=== PATIENT | male | born 1975 | race Caucasian/White ===

== ENCOUNTER 2018-09-28 15:22 | Emergency (ER) | payer OTHER ==
[~2018-09-28] VITALS: Ht 177.8 cm; Wt 71.7 kg
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
[2018-09-28 16:28] LABS: BASOPHILS % (AUTO) 0.3 % (0.0-2.0); EOSINOPHILS % (AUTO) 0.2 % (0.0-6.0); HEMATOCRIT 43 % (39-51); HEMOGLOBIN 14.9 g/dL (13.5-17.5); LYMPHOCYTES # (AUTO) 0.9 /CMM (0.8-4.8); LYMPHOCYTES % (AUTO) 8.9 % (20.0-44.0); MEAN CORPUSCULAR HGB CONC 35 g/dl (31.0-36.0); MEAN CORPUSCULAR VOLUME 92 fL (80-96); MONOCYTES # (AUTO) 0.5 /CMM (0.1-1.30); MONOCYTES % (AUTO) 5.1 % (2.0-12.0); NEUTROPHILS # (AUTO) 8.4 /CMM (1.8-8.9); NEUTROPHILS % (AUTO) 85.5 % (43.0-81.0); PLATELET COUNT (AUTO) 211 /CMM (150-450); RED BLOOD CELL COUNT(AUTO) 4.61 MIL/uL (4.5-6.0); WHITE BLOOD COUNT (AUTO) 9.8 K/uL (4.3-11.0)
[2018-09-28] MEDS ORDERED: ASPIRIN 81 MG TAB.CHEW PO ONE (16:30)
[2018-09-28] MEDS ORDERED: ASPIRIN 81 MG TAB.CHEW ONE (16:36)
[2018-09-28 16:38] LABS: ALCOHOL, BLOOD < 3 mg/dL (0-0)
[2018-09-28 16:43] LABS: CALCIUM, SERUM 8.7 mg/dL (8.5-10.1); CREATININE 1.1 mg/dL (0.6-1.3); MAGNESIUM 1.8 mg/dL (1.8-2.4)
[2018-09-28 16:46] LABS: POTASSIUM 2.7 mmol/L (3.5-5.1)
[2018-09-28 16:53] LABS: CREATINE KINASE, TOTAL 143 U/L (39-308)
--- NOTE | 2018-09-28 16:59 | NUR ---
CALLED [facility] [phone] [facility] NUMBER IS [phone] ACTIVE
[2018-09-28] MEDS ORDERED: POTASSIUM CHLORIDE 20 MEQ TAB.PRT.SR PO ONE ×2 (17:00→17:03)
[2018-09-28] MEDS ORDERED: Magnesium 1 GM/2 ML VIAL IV ONE (17:00)
[2018-09-28] MEDS ORDERED: Magnesium 1 GM/2 ML VIAL ONE (17:03)
--- NOTE | 2018-09-28 17:14 | NUR ---
URINE SENT TO STAT LAB
--- NOTE | 2018-09-28 17:20 | NUR ---
GOT CALL BACK FROM EDISON BARAHONA [phone] [employer] WILL CALL US WITH TRANSPORT INFO
[2018-09-28 17:26] LABS: APPEARANCE,URINE Clear (CLEAR); BILIRUBIN,URINE Negative (NEGATIVE); BLOOD, URINE Negative Ery/uL (NEGATIVE); COLOR,URINE Yellow (YELLOW); KETONES,URINE Trace (NEGATIVE); LEUKOCYTE ESTERASE ,URINE Negative (NEGATIVE); NITRITE, URINE Negative (NEGATIVE); PH,URINE 7.5 (5.0-8.0); PROTEIN,URINE 30 mg/dl (NEGATIVE); UGLUCOSE Negative (NEGATIVE); UROBILINOGEN,URINE 0.2 EU/dL (0.2)
[2018-09-28 17:27] VITALS: BP 125/76
[2018-09-28 17:34] LABS: BACTERIA,URINE Rare /HPF (None Seen); RBC,URINE NONE SEEN /HPF (0-2); SQUAMOUS EPITHELIAL CELL,UR Few /HPF (None Seen); WBC,URINE NONE SEEN /HPF (0-3)
--- NOTE | 2018-09-28 17:54 | NUR ---
PT ADMIT TO EDISON SIMS RN FOR REPORT [phone] MD [facility] ETA 1853 HOURS
--- NOTE | 2018-09-28 18:14 | NUR ---
Patient is resting comfortably in bed with eyes closed. Easily aroused. VSS
--- NOTE | 2018-09-28 19:15 | NUR ---
REPORT GIVEN TO SHANELL AT [facility] ER AND PRN UN[address] EMT
== END 2018-09-28 19:25 | disposition short-term general hospital (02) ==
LOC: ER 15:26
DX: R55 Syncope and collapse (principal); R07.89 Other chest pain; I24.9 Acute ischemic heart disease, unspecified; E87.6 Hypokalemia; F32.9 Major depressive disorder, single episode, unspecified; F90.9 Attention-deficit hyperactivity disorder, unspecified type; F10.10 Alcohol abuse, uncomplicated; Y90.0 Blood alcohol level of less than 20 mg/100 ml; Z60.2 Problems related to living alone; Z79.82 Long term (current) use of aspirin
CPT/HCPCS: 36415; 71045; 80048; 80061; 80305; 80307; 81001; 82550; 83735; 84484; 85025; 85730; 93005; 96374; 99285; A4606; J3475; 81000-TC; G0480